=== PATIENT | female | born 1975 | race Caucasian/White ===

== ENCOUNTER 2021-11-12 08:39 | Emergency (ER) | payer OTHER ==
[~2021-11-12] VITALS: Ht 154.9 cm; Wt 77.0 kg
[~2021-11-12 08:39] MED LIST: PREN-95 PO; PREN1TAB19
[2021-11-12] MEDS ORDERED: PANTOPRAZOLE SODIUM 40 MG/VIAL IV STA (08:55)
[2021-11-12] MEDS ORDERED: MORPHINE SULFATE 4 MG/ML CPJ (NOT FOR IM USE) IV STA (08:55)
[2021-11-12] MEDS ORDERED: VISCOUS LIDOCAINE 2% 15 ML UDC PO STA (08:55)
[2021-11-12] MEDS ORDERED: MAGNESIUM/ALUMINUM HYDROXIDE/SIMETHICONE 30ML UDC PO STA (08:55)
[2021-11-12] MEDS ORDERED: ONDANSETRON HCL 4MG/2ML INJ IV STA (08:55)
[2021-11-12] MEDS ORDERED: SODIUM CHLORIDE 0.9% 1,000 ML IV ONE (09:00)
[2021-11-12 09:27] LABS: BASOPHILS % 0.6 % (0.0-2.0); EOSINOPHILS % 2.7 % (0.0-5.0); HEMATOCRIT. 35.4 % (36.0-48.0); HEMOGLOBIN. 11.9 g/dL (12.0-16.0); LYMPHOCYTES % 23.8 % (20.0-50.0); MEAN CORPUSCULAR HEMOGLOBIN 28.9 pg (28.0-32.0); MEAN CORPUSCULAR VOLUME 86.1 fL (81.0-99.0); MEAN PLATELET VOLUME 7.3 fl (7.4-10.4); MONOCYTES % 9.1 % (2.0-8.0); NEUTROPHILS % 63.8 % (40.0-76.0); PLATELET 277 x1000/uL (130-400); RED BLOOD CELL COUNT 4.11 mill/uL (4.2-5.4); RED CELL DISTRIBUTION WIDTH 13.6 % (11.6-14.6)
[2021-11-12 09:35] LABS: CHLORIDE 105 mEq/L (98-107)
[2021-11-12 09:36] LABS: PROTHROMBIN TIME 10.8 sec (9.6-11.0)
[2021-11-12 09:42] LABS: HCG SCREEN NEGATIVE
[2021-11-12 10:29] LABS: CLARITY URINE CLOUDY (CLEAR); COLOR URINE YELLOW (YELLOW); KETONES URINE NEGATIVE (NEGATIVE); LEUKOCYTE ESTERASE URINE 1+ (NEGATIVE); NITRITE URINE NEGATIVE (NEGATIVE); OCCULT BLOOD URINE NEGATIVE (NEGATIVE); PROTEIN URINE NEGATIVE (NEGATIVE); SPECIFIC GRAVITY URINE 1.008 (1.005-1.030); UROBILINOGEN URINE 0.2 E.U./dL (0.2-1.0)
[2021-11-12] MEDS ORDERED: MAG-55 MT (11:14)
[2021-11-12] MEDS ORDERED: PROT40 MT (11:14)
[2021-11-12] MEDS ORDERED: ONDA4TAB50 MT (11:14)
[2021-11-12 13:40] VITALS: BP 135/90
[2021-11-12] MEDS ORDERED: MORPHINE SULFATE 2 MG/ML CPJ (NOT FOR IM USE) IV ONE (14:30)
== END 2021-11-12 15:37 | disposition home or self-care (01) ==
LOC: ER 08:39
DX: R10.13 Epigastric pain (principal); I10 Essential (primary) hypertension; D64.9 Anemia, unspecified; H91.90 Unspecified hearing loss, unspecified ear
CPT/HCPCS: 36415; 71045; 76705; 80053; 81003; 83690; 84703; 85025; 85610; 93005; 96361; 96374; 96375; 96376; 99285; C9113; J2270; J2405; J7030